=== PATIENT | female | born 1980 | race Caucasian/White ===

== ENCOUNTER 2017-09-18 21:07 | Emergency (ER) | payer OTHER ==
[~2017-09-18] VITALS: Ht 170.2 cm; Wt 99.8 kg
[~2017-09-18 21:07] MED LIST: Bactrim Ds Tab1 EACH PO; CLIN300 PO; CRUTCH4 USE; Cleocin HCl300 MG PO; HYDACE5 PO; HYDACE5325 PO; IBUP800 PO; Nifedical Xl60 MG PO; OXYACE5T PO; PENVK500 PO; RXHYDACE PO
[2017-09-18 21:53] LABS: BASOPHILS ABSOLUTE AUTO 0.02 K/mm3 (0.00-0.23); BASOPHILS PERCENT AUTO 0 % (0-2); EOSINOPHILS ABSOLUTE AUTO 0.19 K/mm3 (0.00-0.68); EOSINOPHILS PERCENT AUTO 2 % (0-6); Hematocrit 37.6 % (33.0-51.0); Hemoglobin 12.6 g/dL (11.5-16.0); IMMATURE GRAN ABSOLUTE AUTO 0.02 K/mm3 (0.00-0.10); IMMATURE GRAN PERCENT AUTO 0 % (0-1); LYMPHOCYTES ABSOLUTE AUTO 1.36 K/mm3 (0.84-5.20); LYMPHOCYTES PERCENT AUTO 12 % (21-46); MONOCYTES ABSOLUTE AUTO 0.86 K/mm3 (0.16-1.47); MONOCYTES PERCENT AUTO 7 % (4-13); Mean Corpuscular HGB 28.4 pg (26.0-34.0); Mean Corpuscular HGB Conc 33.5 g/dL (31.5-36.5); Mean Corpuscular Volume 85 fL (80-100); Mean Platelet Volume 9.5 fL (9.1-12.4); NEUTROPHILS ABSOLUTE AUTO 9.13 K/mm3 (1.96-9.15); NEUTROPHILS PERCENT AUTO 79 % (41-73); Platelet Count 248 K/mm3 (150-400); RDW Standard Deviation 43.1 fL (35.1-46.3); Red Blood Cell Count 4.43 M/mm3 (3.80-5.20); White Blood Cell Count 11.58 K/mm3 (4.00-11.30)
[2017-09-18 22:12] LABS: Alanine Aminotransfer (ALT/SGP 25 U/L (12-78); Albumin, Blood 3.6 g/dL (3.4-5.0); Albumin/Globulin Ratio 1.1 (0.8-1.8); Alk Phos 93 U/L (50-136); Anion Gap 9 mmol/L (6-16); Aspartate Aminotrans (AST/SGOT 22 U/L (12-37); Bilirubin, Total 0.8 mg/dL (0.1-1.0); Blood Urea Nitrogen 9 mg/dL (8-24); Bun/Creatinine Ratio 11.6 (12.0-20.0); CO2, Blood 23 mmol/L (21-32); Calcium, Blood 8.3 mg/dL (8.5-10.1); Chloride, Blood 108 mmol/L (98-108); Creatinine, Blood 0.78 mg/dL (0.40-1.00); Globulin, Blood 3.4 g/dL (2.2-4.0); Glomerular Filtration Rate >60 (60-); Glucose, Blood 95 mg/dL (70-99); Potassium, Blood 3.4 mmol/L (3.5-5.5); Sodium, Blood 140 mmol/L (136-145)
[2017-09-19] MEDS ORDERED: COMPLETE ALLERG PO (00:02)
== END 2017-09-19 00:25 | disposition home or self-care (01) ==
LOC: ER 21:07
PROVIDERS: Emergency Medicine
DX: L23.7 Allergic contact dermatitis due to plants, except food (principal)
CPT/HCPCS: 36415; 80053; 85025; 96372; 99283; J3301